=== PATIENT | female | born 1950 | race Caucasian/White ===

== ENCOUNTER 2022-07-03 05:40 | Inpatient (IN) | payer MEDICARE ==
[~2022-07-03] VITALS: Ht 160 cm; Wt 80.5 kg
[~2022-07-03 05:40] MED LIST: BUDE10.2 INH; CHOL5000 PO; DULO-31 PO; MONT10TA21 PO; SPIIN INH
[2022-07-03] MEDS ORDERED: normal saline 1000ML IV soln IVB ONE (06:10)
[2022-07-03] MEDS ORDERED: ondansetron/PF 4mg/2ml inj IV ONE (06:10)
[2022-07-03 06:49] LABS: BASOPHILS % (AUTO) 0.3 % (0-1); EOSINOPHILS # (AUTO) 0.1 X10'3 (0-0.9); EOSINOPHILS % (AUTO) 1.1 % (0-6); HEMATOCRIT 45.8 % (35.0-45.0); LYMPHOCYTES # (AUTO) 0.8 X10'3 (1.1-4.8); LYMPHOCYTES % (AUTO) 6.3 % (21-51); MEAN CORPUSCULAR HEMOGLOBIN 28.1 PG (27.0-31.0); MEAN CORPUSCULAR HGB CONC 32.8 g/dL (33.0-36.5); MEAN CORPUSCULAR VOLUME 85.7 FL (78-98); MEAN PLATELET VOLUME 7.1 FL (7.4-10.4); MONOCYTES # (AUTO) 0.5 X10'3 (0-0.9); MONOCYTES % (AUTO) 4.1 % (2-12); NEUTROPHILS # (AUTO) 11.7 X10'3 (1.8-7.7); NEUTROPHILS % (AUTO) 88.2 % (42-75); PLATELET COUNT 294 X10'3 (140-440); RED BLOOD COUNT 5.35 X10'6 (4.20-5.60); RED CELL DISTRIBUTION WIDTH 13.9 % (11.5-14.5); WHITE BLOOD COUNT 13.2 X10'3 (4.5-11.0)
[2022-07-03] MEDS: morphine 4 MG/ML inj SYRINge IV PRN ×2 (06:58→09:31)
[2022-07-03 07:10] LABS: ALANINE AMINOTRANSFERASE 14 U/L (12-78); ALBUMIN 3.8 G/DL (3.4-5.0); ALKALINE PHOSPHATASE 115 IU/L (46-116); ANION GAP 8 (8-16); ASPARTATE AMINO TRANSFERASE 20 U/L (10-37); BILIRUBIN,TOTAL 0.5 MG/DL (0.1-1.0); BLOOD UREA NITROGEN 31 MG/DL (7-18); BUN/CREATININE RATIO 19.7 (6.6-38.0); CALCIUM 8.9 MG/DL (8.5-10.1); CHLORIDE 104 MMOL/L (99-107); CREATININE 1.57 MG/DL (0.40-0.90); GLUCOSE 146 MG/DL (70-104); LIPASE 122 U/L (73-393); POTASSIUM 3.9 MMOL/L (3.5-5.1); SODIUM 138 MMOL/L (135-145); TOTAL CARBON DIOXIDE 26.3 MMOL/L (24-32); TOTAL PROTEIN 7.6 G/DL (6.4-8.2); eGFR 33 ML/MIN
[2022-07-03] MEDS ORDERED: fentaNYL/PF 50MCG/1 ML 2ML syringe IV ONE (07:30)
[2022-07-03 09:18] LABS: CLARITY,URINE CLOUDY (Clear); COLOR,URINE YELLOW (Yellow); GLUCOSE, URINE NEGATIVE (Neg); KETONES,URINE NEGATIVE (Neg); LEUKOCYTE ESTERASE ,URINE SMALL (Neg); NITRITES, URINE POSITIVE (Neg); OCCULT BLOOD,URINE MODERATE (Neg); PH,URINE 5.5 (4.8-8.0); PROTEIN,URINE 30 mg/dl (Neg); UROBILINOGEN,URINE 0.2 E.U/dL (0.2-1.0)
[2022-07-03 09:25] LABS: UA COLLECTION TYPE OTHER
[2022-07-03 09:26] LABS: WBC CLUMPS,URINE MANY /HPF (NEGATIVE)
[2022-07-03 09:27] LABS: BACTERIA,URINE 3+ /HPF (Neg); WBC,URINE TNTC /HPF (0-4)
[2022-07-03 09:28] LABS: SQUAMOUS EPITHELIAL CELL,UR FEW /LPF (FEW)
[2022-07-03] MEDS ORDERED: CefTRIAXone 2gm/D5W 50ml BAG 50 ML IV ONE (10:20)
[2022-07-03] MEDS ORDERED: ondansetron/PF 4mg/2ml inj IV PRN (10:55)
[2022-07-03] MEDS ORDERED: mag hydrox/Alum hydrox/simeth 30ml oral suspension PO PRN (10:55)
[2022-07-03] MEDS ORDERED: magnesium hydroxide 30ml (MOM) UD suspension PO PRN (10:55)
[2022-07-03] MEDS ORDERED: acetaminophen 325mg tablet PO PRN ×2 (10:55)
[2022-07-03] MEDS ORDERED: morphine 2 MG/ML inj. syringe IV PRN (10:55)
[2022-07-03] MEDS ORDERED: HYDROcodone/acetaminophen 5mg/325mg tablet PO PRN (10:55)
[2022-07-03] MEDS: normal saline 1000ml 1,000 ML IV SCH ×2 (11:16→23:02)
[2022-07-03] MEDS: morphine 2 MG/ML inj. syringe IV PRN ×2 (11:20→14:57)
[2022-07-03] MEDS ORDERED: ATOR10TA70 PO (12:51)
[2022-07-03] MEDS ORDERED: KEN0.1O TOP (12:51)
[2022-07-03] MEDS ORDERED: CLOB15CR11 TOP (12:51)
[2022-07-03] MEDS ORDERED: CYCL-1 PO (12:51)
[2022-07-03 20:15] VITALS: BP 88/60
--- NOTE | 2022-07-03 20:15 | NUR ---
PATIENT ADMITTED TO ROOM 348B FROM ER FOR NEPHROLITHIASIS. PLACED COMFORTABLE IN BED. VITAL SIGNS TAKEN AND RECORDED.
[2022-07-03] MEDS: docusate sod 100mg capsule PO SCH (23:03)
[2022-07-04] VITALS (22 sets, daily range): BP systolic 87–165; BP diastolic 53–81
--- NOTE | 2022-07-04 06:30 | NUR ---
Problems reprioritized. Patient report given, questions answered & plan of care reviewed with DANDY AREVALO.
--- NOTE | 2022-07-04 06:42 | NUR ---
Patient in room [facility] 348. I have received report from Suad Borjas and had the opportunity to ask questions and assume patient care.
[2022-07-04 07:01] LABS: BASOPHILS % (AUTO) 0.2 % (0-1); EOSINOPHILS % (AUTO) 0.1 % (0-6); HEMATOCRIT 42.2 % (35.0-45.0); HEMOGLOBIN 13.8 g/dl (12.0-16.0); LYMPHOCYTES # (AUTO) 0.9 X10'3 (1.1-4.8); LYMPHOCYTES % (AUTO) 4.5 % (21-51); MEAN CORPUSCULAR HGB CONC 32.7 g/dL (33.0-36.5); MEAN CORPUSCULAR VOLUME 85.6 FL (78-98); MEAN PLATELET VOLUME 7.4 FL (7.4-10.4); MONOCYTES # (AUTO) 1.3 X10'3 (0-0.9); MONOCYTES % (AUTO) 6.3 % (2-12); NEUTROPHILS # (AUTO) 18.4 X10'3 (1.8-7.7); NEUTROPHILS % (AUTO) 88.9 % (42-75); PLATELET COUNT 252 X10'3 (140-440); RED BLOOD COUNT 4.92 X10'6 (4.20-5.60); RED CELL DISTRIBUTION WIDTH 13.9 % (11.5-14.5); WHITE BLOOD COUNT 20.7 X10'3 (4.5-11.0)
[2022-07-04 07:09] LABS: ALBUMIN 2.7 G/DL (3.4-5.0); ANION GAP 5 (8-16); BLOOD UREA NITROGEN 24 MG/DL (7-18); BUN/CREATININE RATIO 19.2 (6.6-38.0); CALCIUM 8.8 MG/DL (8.5-10.1); CHLORIDE 107 MMOL/L (99-107); CREATININE 1.25 MG/DL (0.40-0.90); GLUCOSE 114 MG/DL (70-104); POTASSIUM 4.9 MMOL/L (3.5-5.1); SODIUM 140 MMOL/L (135-145); TOTAL CARBON DIOXIDE 28.5 MMOL/L (24-32); eGFR 42 ML/MIN
[2022-07-04] MEDS ORDERED: CefTRIAXone/D5W-Rocephin 1gm 50 ML IV SCH (08:00)
[2022-07-04] MEDS: docusate sod 100mg capsule PO SCH (08:00)
[2022-07-04] MEDS ORDERED: ringers solution, lacted 1,000 ML IV SCH (09:25)
[2022-07-04] MEDS ORDERED: morphine 2 MG/ML inj. syringe IV PRN (09:25)
[2022-07-04] MEDS ORDERED: fentaNYL/PF 50MCG/1 ML 2ML syringe IV PRN ×2 (09:25)
[2022-07-04] MEDS ORDERED: morphine 4 MG/ML inj SYRINge IV PRN (09:25)
[2022-07-04] MEDS ORDERED: ondansetron/PF 4mg/2ml inj IV PRN (09:25)
[2022-07-04] MEDS ORDERED: hydrALAZINE 20mg/ml inj. IV PRN (09:25)
[2022-07-04] MEDS ORDERED: labetalol 20mg/4ml (5mg/ml) syringe IV PRN (09:25)
[2022-07-04] MEDS ORDERED: fentaNYL/PF 50MCG/1 ML 2ML syringe ONE (12:53)
[2022-07-04] MEDS ORDERED: midazolam 1 mg/ML 2ml injection ONE (12:53)
--- NOTE | 2022-07-04 12:53 | NUR ---
pt to OR
[2022-07-04] MEDS ORDERED: LIDOcaine 1%/PF 5ML 10 MG/ML VIAL ONE (12:54)
[2022-07-04] MEDS ORDERED: propofol inj 20 ML IV ONE (12:54)
[2022-07-04] MEDS ORDERED: dexamethasone sod phosphate 10mg/ml inj ONE (13:20)
[2022-07-04] MEDS ORDERED: desflurane 240ml liquid inh. IH ONE (13:20)
[2022-07-04] MEDS ORDERED: ondansetron/PF 4mg/2ml inj ONE (13:25)
[2022-07-04] MEDS ORDERED: iohexol 300 MG/1 ML 50ml polymer ONE (13:28)
--- NOTE | 2022-07-04 14:22 | NUR ---
Received from OR via [facility] TO [facility]OM [facility] , accompanied by Anesthesiologist DR BLAKELY and report given by Anesthesiolgist. PT PRESENTS WITH PIV 22G RIGHT AC, VSS. Addendum: 07/04/22 at 1459 by Eleni Allen RN, RN Amended: Links added.
--- NOTE | 2022-07-04 15:52 | NUR ---
Report called to receiving nurse DANDY AREVALO. Transferred via [facility] BED TO ROOM 348B. BED IN LOW LOCKED POSITION WITH CALL LIGHT IN REACH, DANDY RN AT BEDSIDE. PT HOOKED UP TO VITALS MACHINE. PT CHART GIVE TO DANDY AREVALO.Belongings WERE LEFT IN PT ROOM 348B. Special Issues communicated to receiving nurse.
--- NOTE | 2022-07-04 15:58 | NUR ---
PAGER ID: [phone] MESSAGE: Abril Tony in 348B - Pt just arrived from recovery. She does want to go home today. -Consuelo [phone]
[2022-07-04] MEDS ORDERED: HYDR-3965 PO (17:26)
[2022-07-04] MEDS ORDERED: LEVO-65 PO (17:47)
--- NOTE | 2022-07-04 18:12 | NUR ---
Problems reprioritized. Patient report given, questions answered & plan of care reviewed with
--- NOTE | 2022-07-04 20:38 | NUR ---
Pt wheeled out to lobby for d/c at this time. Accompanied by sister.
== END 2022-07-04 20:30 | disposition home or self-care (01) | DRG 854 ==
LOC: ER 05:41 → ED HOLD 10:54 → SUR 3N 20:10
PROVIDERS: ADMIT Internal Medicine; ATTEND Internal Medicine
PROC: BT1D1ZZ Fluoroscopy of Right Kidney, Ureter and Bladder using Low Osmolar Contrast (ICD-10-PCS; 2022-07-04)
PROC: 0T768DZ Dilation of Right Ureter with Intraluminal Device, Via Natural or Artificial Opening Endoscopic (ICD-10-PCS; principal; 2022-07-04 13:20)
DX: A41.9 Sepsis, unspecified organism (principal); N13.6 Pyonephrosis; N20.2 Calculus of kidney with calculus of ureter; N17.9 Acute kidney failure, unspecified; E78.00 Pure hypercholesterolemia, unspecified; R31.9 Hematuria, unspecified; J44.9 Chronic obstructive pulmonary disease, unspecified; M79.7 Fibromyalgia; G47.33 Obstructive sleep apnea (adult) (pediatric); Z87.891 Personal history of nicotine dependence; Z88.0 Allergy status to penicillin; Z90.49 Acquired absence of other specified parts of digestive tract; Z79.899 Other long term (current) drug therapy
CPT/HCPCS: 36415; 74176; 76000; 80048; 80053; 81001; 82948; 83690; 83880; 84145; 85025; 87077; 87081; 87088; 87186; 93005; 99285; A4615; A4618; C1758; C1769; C2617; G0378; J0696; J1100; J2250; J2270; J2405; J2704; J3010; J3490; J7030; J7120; Q9967